=== PATIENT | male | born 1955 | race African-American/Black ===

== ENCOUNTER 2017-09-24 13:36 | Emergency (ER) | payer OTHER ==
[~2017-09-24] VITALS: Ht 177.8 cm; Wt 90.0 kg
[~2017-09-24 13:36] MED LIST: AMLO5 PO; CIAL5TAB PO; CYCL-36 PO; HYDR10SO PO; Hydrocodone PO; TAMS0.4C67 PO; VIAG100T PO
[2017-09-24 13:47] VITALS: BP 194/97; PULSE 64; RESP 14; TEMP 98.1; O2SAT 100
[2017-09-24] MEDS ORDERED: PROS5TAB PO (14:07)
[2017-09-24] MEDS ORDERED: HYDR-3580 PO (14:07)
[2017-09-24] MEDS ORDERED: TAMS5CAP PO (14:07)
[2017-09-24] MEDS ORDERED: CYCL10TA PO (14:07)
--- NOTE | 2017-09-24 14:22 | PD ---
HPI Chief Complaint: Injury Time Seen by Provider: 14:02 Travel History International Travel<30 days: No Contact w/Intl Traveler<30days: No Traveled to known affect area: No History of Present Illness HPI 62-year-old male with history of hypertension presents emergency department for evaluation of right shoulder pain. Patient was lifting a heavy comforter onto the bed of a truck when he felt something tear in his shoulder. He states there is significant pain with lifting his arm up. He is unable to do it by himself. He denies any alterations in sensation. Pain is a constant 6 out of 10 exacerbated to a 10 out of 10 with movement. He has no other symptoms to report. PFSH Past Medical History Hypertension: Yes Musculoskeletal: Yes (CHRONIC BACK PAIN, DDD L4,L5) Social History Alcohol Use: No Tobacco Use: No Substance Use: No Allergies-Medications (Allergen,Severity, Reaction): Coded Allergies: lisinopril (Unverified Allergy, Intermediate, severe coughing, 09/24/17) Reported Meds & Prescriptions Reported Meds & Active Scripts Active Reported Flexeril (Cyclobenzaprine HCl) 10 Mg Tab 10 Mg PO HS Proscar (Finasteride) 5 Mg Tab 5 Mg PO DAILY Do not crush. Flomax (Tamsulosin HCl) 0.4 Mg Cap 0.4 Mg PO BID Hydrocodone-Acetaminophen 7.5 Mg-325 Mg Tab 1 Tab PO Q6H PRN Review of Systems Except as stated in HPI: all other systems reviewed are Neg Physical Exam Narrative GENERAL: Well-nourished, well-developed male patient, ambulatory no acute distress SKIN: Focused skin assessment warm/dry. HEAD: Normocephalic. EYES: No scleral icterus. No injection or drainage. NECK: Supple, trachea midline. No JVD or lymphadenopathy. No cervical spine tenderness CARDIOVASCULAR: Regular rate and rhythm without murmurs, gallops, or rubs. RESPIRATORY: Breath sounds equal bilaterally. No accessory muscle use. GASTROINTESTINAL: Abdomen soft, non-tender, nondistended. MUSCULOSKELETAL: No cyanosis, or edema. Tenderness elicited palpation of the posterior right shoulder. No deformity. 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 Patient is unable to lift the right arm up without significant pain. Distal pulses are palpable. Cap refill within normal limits. BACK: Nontender without obvious deformity. No CVA tenderness. Data Data Last Documented VS Vital Signs Date Time Temp Pulse Resp B/P (MAP) Pulse Ox O2 Delivery O2 Flow Rate FiO2 09/24/17 13:47 98.1 64 14 194/97 (129) 100 Orders Orders Shoulder, Complete (>2vws) (09/24/17 ) Ketorolac Inj (Toradol Inj) (09/24/17 14:30) Support Splint (09/24/17 14:54) Ed Discharge Order (09/24/17 14:54) MDM Medical Decision Making Medical Screen Exam Complete: Yes Emergency Medical Condition: Yes Medical Record Reviewed: Yes Differential Diagnosis Shoulder sprain versus fracture versus dislocation versus internal derangement Narrative Course 62-year-old male presents emergency department for evaluation right shoulder pain after lifting a heavy object into the bed of a truck. Patient appears without distress. He has tenderness elicited palpation of the posterior right shoulder. No obvious deformity. X-ray imaging shows no acute bony abnormality. Patient is placed in a sling, treated for pain, and counseled on care. He is encouraged to seek orthopedic evaluation and outpatient MRI for further evaluation. He agrees to return immediately with acute worsening symptoms. Diagnosis Primary Impression: Shoulder pain, acute Qualified Codes: M25.511 - Pain in right shoulder Referrals: Orthopaedic Surgeon Patient Instructions: General Instructions, Shoulder Pain (GEN), Shoulder Separation Exercises (GEN) Additional Instructions: Sling for support and comfort Do not wear at all times as you will risk a frozen shoulder Daily range of motion exercises Seek orthopedic evaluation Outpatient MRI is recommended for further evaluation of the shoulder pain Return immediately with acute worsening symptoms Med/Other Pt SpecificInfo: Prescription(s) given Scripts Ibuprofen (Ibuprofen) 600 Mg Tab 600 MG PO Q8H Y for PAIN, #30 TAB 0 Refills Prov: Isaiah Thomasbriana CHAWLA 09/24/17 Disposition: 01 DISCHARGE HOME Condition: Stable MarthaLyubov CHAWLA Sep 24, 2017 14:22
[2017-09-24] MEDS ORDERED: KETOROLAC TROMETHAMINE 60 MG/2 ML (IM) VIAL IM ONE (14:30)
--- NOTE | 2017-09-24 14:50 | RADRPT ---
EXAM DATE: 09/24/2017 2:48 PM EDT AGE/SEX: 62 years / Male INDICATIONS: Hurt right shoulder lifting a compressor today. CLINICAL DATA: This is the patient's initial encounter. Patient reports that signs and symptoms have been present for 1 day and indicates a pain score of 10/10. MEDICAL/SURGICAL HISTORY: None. None. COMPARISON: No prior exams available for comparison. FINDINGS: Degenerative changes acromial clavicular joint with subacromial spurring. Narrowing of the rotator cu ff interval. Lung apex clear. CONCLUSION: Degenerative changes, no fracture Electronically signed by: Ranjith Hamilton MD 09/24/2017 2:49 PM EDT
[2017-09-24] MEDS ORDERED: IBUP-232 PO (14:58)
== END 2017-09-24 15:10 | disposition home or self-care (01) ==
LOC: NEPK 13:36
DX: M25.511 Pain in right shoulder (principal); I10 Essential (primary) hypertension
CPT/HCPCS: 73030; 96372; 99283; J1885